=== PATIENT | female | born 1985 | race Caucasian/White ===

== ENCOUNTER 2020-10-06 09:13 | Emergency (ER) | payer OTHER ==
[2020-10-06 09:22] VITALS: BP 136/90; PULSE 91; TEMP 97.8; BMI 34.4
== END 2020-10-06 12:31 | disposition home or self-care (01) ==
LOC: JER 09:13
DX: S93.402A Sprain of unspecified ligament of left ankle, initial encounter (principal)
CPT/HCPCS: 73610-TC-LT-FY; 73630-TC-LT; 93971-TC; 99284-25